=== PATIENT | male | born 1960 | race Caucasian/White ===

== ENCOUNTER 2018-03-23 13:57 | Outpatient (RCR) | payer MEDICARE, MEDICAID, SELFPAY ==
--- NOTE | 2018-03-23 14:00 | IE_ITS ---
Date: March 23, 2018 Referring: Torin Moser MD M.D. Diagnosis: L LE lymphedema P.T. Diagnosis: Bilateral LE venous insufficiency, peripheral neuropathy, L LE lymphedema with small ulcer, healed cellulitis SUBJECTIVE: History of Present Illness: Patient reports about 4-5 years ago he started have swelling in bilateral legs and feet. He states that the swelling comes and goes and he gets episodes of blisters on bilateral legs that pop and proceed to infection about 3x per year. He has been recently treated for cellulitis of the L LE, has completed antibiotic therapy. He states he has tried over the counter knee high closed toe compression garments, but has trouble getting them on due to difficulty reaching his feet. He does have a sock aide at home, but is unable to put on compression garments using the sock aide. He reports he has been on disability for several years due to back and hip pain and is pretty sedentary in his lifestyle. He mostly stays at home and moves from the kitchen to the living room. He sleeps in recliner chair due to difficulty breathing. He states he is not very active at his baseline. Patient is here for education regarding lymphedema management with goal to reduce LE swelling and episodes of cellulitis throughout the year. Patient states at this time his legs are pretty good shape and have calmed down in swelling significantly in the last few weeks. Pain Ratin/10 throughout his body, reports ongoing chronic pain that limits his functional mobility. Prior Level of Function: Prior to 5 years ago he had decreased swelling in the legs and was slightly more mobile . Current Level of Function: Only wears slip on shoes and slip on boots. Difficulty standing up in the shower to perform bathing and uses a shower chair. Unable to reach his feet to perform nail care, unable to reach his feet to perform skin care and cleaning between the toes. Unable to put on socks, even with sock aide, so he frequently goes without socks in the summer and winter time. 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 Previous Treatment: None for this diagnosis. Has been treated for cellulitis with antibiotics in the past. Reports he has been taking water pills. Social: Currently lives with a room mate who may be moving out. Does not have a spouse or partner to be able to assist him with LE care or dressing. He needs to be independent in the home setting. Occasionally uses assistive device of single point cane, or a 4-wheeled walker. Does use a shower chair and grab bars for bathing. As stated above, sleeps in a recliner chair, does not have the ability to lie flat in a bed, limited mobility and household. Comorbidities: Chronic obstructive pulmonary disease, diabetes mellitus type II , morbid obesity, acute kidney injury in the past, coronary artery disease, s/p two vascular stents, LED insert, reports myocardial infarction, umbilicus hernia repair and graft in 2010, hyperlipidemia, heavy tobacco addiction 1-2 ppd , lymphedema L LE, cellulitis bilateral LE, chronic small ulcers L LE. Falls in the last year: __X__ No Reported hospitalizations in the last year - __X__ Yes - Dates of admission/ reason: due to cellulitis Medications: Significant (see medical records from Dr. Moser for complete medication details) Quality of Life: ____ Excellent ____ Good __X__ Fair ____ Poor Standardized Measures: LEFS score: 94% Completed lymphedema quality of life study (see sheet for details) OBJECTIVE: Posture: Patient stands with wide stance, obese with forward lean due to abdomen Gait: Step through gait pattern with wide base of support without assistive device. Decreased stride and decreased romeo due to shortness of breath with exertion and deconditioning. Palpation/Observation: Bilateral LE skin changes, bilateral anterior shins are bright red, L lateral calf has a small scaled dry, healing wound .5x.5: Remaining toe nails on bilateral feet are very long and require a podiatry consult as patient is unable to reach his feet to cut his toenails. Bilateral skin around the ankles and toes is dry, scaly as patient has difficulty putting lotion on his feet, due to inability to reach his feet. Bilateral feet and dorsum of the feet tender to palpation. Edema: Not significant at this time. Patient reports edema occurs primarily from the knee to the foot. Circumferential measurements: RIGHT LEFT Mid foot 26cm 24cm 10cm 27cm *29cm 20cm 31cm *32cm 30cm 40cm 40cm 40cm 39cm 39.5cm 50cm 46cm 47cm ROM: Bilateral hip flexion to 110 degrees, bilateral knees WNL. Bilateral ankles WNL. Strength: Bilateral hip flexion 3/5, 4/5 bilateral quad, 4/5 hamstring, 5/5 dorsiflexion and plantar flexion. Neuro: Patient is intact to light touch in proprioception. Does have some decreased sensation he reports with bilateral LE with gait and with mobility. Most likely due to peripheral neuropathy secondary to diabetes mellitus. Motor control and kinesthetic awareness are intact. Treatment: Included initial evaluation, assessment of functional abilities. IE: [id number] Patient Education: Patient issued lymphedema education packet. Educated regarding the difference between venous insufficiency swelling due to cardiac issues and use of diuretic vs lymphedema swelling. Patient provided with diagram regarding lymphatic system and hand outs regarding the anatomy and physiology of venous vs lymphatic systems. Discussion with patient regarding treatment for lymphedema including complete decongestive therapy (CDT) consisting of 1: Skin care and hygiene; at this time the patient has relatively poor skin care , extension length of all toes except for the great toe has which as been removed. Difficulty cleaning between the toes and cleaning of the feet, inability to put lotion on feet daily due to obesity and inability to reach his feet. The patient is a high risk for cellulitis due to difficulty caring for his skin and hx of cellulitis infection with a non-healing ulcer on the left lateral calf. The patient is not sure what his plan is going to be regarding his skin care. Recommend podiatry consult for nail care at this time. 2: Manual lymphatic drainage: Patient will be unable to perform LE MLD due to obesity and COPD. He will be able to perform upper body MLD sequence to activate the general lymphatic system, but specific manual lymphatic drainage on LE's will be extremely difficult for him due to his obesity, deconditioning, and COPD. The patient is not a candidate for pneumatic pumps due to cardiac stents and cardiac history. MLD may not be an option for him at this time. 3: Compression: The patient is in need of new knee high closed toe 20-30mmhg compression garments. Will discuss with patient at next visit options for obtaining compression garments. Patient has difficulty donning the garments due to obesity and COPD. Compliance with compression use on a daily basis is going to be difficult for him due to not having assistance to don his garments daily. Garments are his best option at this time for mcc edema management. 4: Exercise and Elevation: Patient is generally sedentary, difficulty with exercise due to 9/10 chronic pain throughout the body and COPD along with cardiac disease. 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 Will issue LE strengthening for sitting and recliner in his recliner chair to try to improve mobility in LE'S. Elevation: due to inability to lay flat secondary to COPD, patient sleeps in his recliner chair and does not get true elevation of the LEs above the heart for drainage of the lymphedema; again this will be a challenge for him Direct treatment time: 60 mins Total treatment time: 60 mins ASSESSMENT: Patient is a 57-year-old male referred for PT services with the diagnosis of left lower extremity lymphedema. Patient presents with clinical signs and symptoms consistent with Bilateral LE venous insufficiency, peripheral neuropathy due to diabetes, L LE lymphedema with small ulcer, healed cellulitis in setting of morbid obesity and sedentary lifestyle. Pt presents with the following impairment level findings: pain in bilateral LE's with palpation, skin discoloration bilateral LE's consistent with venous changes, non healing ulcer on left LE, edema in left LE see circumferential measurements, decreased ability to perform self ADLS and functional mobility see above. Impairments are contributing to the following functional limitations: see above Patient is assessed as: ____ Low 74503 __X__ Moderate 14921 ____ High 75300 complexity, based on the following: History: See comorbidities and social history. Examination: Body parts bilateral LE's See above for functional limitations and impairments. Presentation: Stable Decision-Making: Moderate complexity % Disability based on LEFS 95% __x__ Patient requires skilled PT intervention to remediate the above functional limitations to return to: __X__ Improve Quality of Life and functional mobility G-Codes Patient's primary functional limitation is in the category of: Other Physical/Occupational Therapy primary functional limitation: current status [id number] Projected goal: __x__ Other Physical/Occupational Therapy primary functional limitation: projected status [id number] KX modifier to be utilized as justified by above documentation for necessity of continued Physical Therapy intervention to attend to functional deficits which have not been fully remediated as they approach their Medicare cap. GOALS STG: __2__ weeks. 1: Educate patient regarding skin care, the patient to obtain podiatry consult and plan for improving skin care for feet. 2: Instruct patient in upper body manual lymphatic drainage to improve lymphatic flow to the body. 3: Patient independent with LE exercise program in sitting and supine. LTG: __4__ weeks. 1: Patient elevating LE in recliner chair 30 mins a day. 2: Patient independent with donning knee high compression garments and wearing daily. 3: Patient independent with lymphedema management program as he is able due to his medical limitations. PLAN: Patient to be seen 1 x per week, for 4 weeks, adjusting frequency of visits per patient symptoms and response to treatment. Treatment to include: Manual therapy - [id number]: for manual lymphatic drainage and instruction in self MLD techniques Therapeutic exercise - [id number] LE strengthening and mobility Aquatic therapy is recommended for lymphatic mobilization and general conditioning. Self care training for lymphedema management program. Thank you for this referral. Please do not hesitate to contact me with any questions or concerns regarding this patient's plan of care. Kori Aburto PT, CLT *Dr. Moser, please sign this evaluation if you are in agreement with the above evaluation and plan of care. cc: Torin Moser MD
== END 2018-03-23 23:59 | disposition home or self-care (01) ==
LOC: PT 13:57
PROVIDERS: PCP Family Medicine; Referring Provider Family Medicine; Visit Provider Family Medicine
DX: I89.0 Lymphedema, not elsewhere classified (principal); I87.2 Venous insufficiency (chronic) (peripheral); E11.40 Type 2 diabetes mellitus with diabetic neuropathy, unspecified
CPT/HCPCS: 97162

== ENCOUNTER 2018-10-09 10:26 | Outpatient (CLI) | payer MEDICARE, SELFPAY ==
[2018-10-09 13:21] LABS: Uric Acid 8.8 mg/dL (3.5-7.2)
== END 2018-10-09 10:46 ==
PROVIDERS: PCP Family Medicine; Visit Provider Family Medicine
DX: M10.9 Gout, unspecified (principal)
CPT/HCPCS: 36415; 84550

== ENCOUNTER 2019-05-01 01:51 | Outpatient (CLI) | payer MEDICARE, MEDICAID, SELFPAY ==
--- NOTE | 2019-05-01 | PFT_ITS ---
PULMONARY FUNCTION TEST REPORT Patient - [facility]arg[facility] Page DATE OF SERVICE May 01, 2019 REQUESTING PROVIDER Jairon Crabtree M.D. INTERPRETATION OF STUDY Spirometry shows very severe obstructive airways disease with some, but not significant bronchodilator response. LUNG VOLUMES - Lung volumes show moderate restriction. DIFFUSION CAPACITY- Mildly reduced, which is normal when corrected to alveolar volume. AIRWAY RESISTANCE - Elevated. IMPRESSION Combination of very severe obstructive airways disease with some, but not significant bronchodilator response and moderate restrictive lung disease, therefore Clinical correlation is recommended. When this study was compared to previous one from 12/16/09, the patient has a total of 1020 cc decline in FVC. FEV1 has declined by 970 cc. Franca Warren M.D. VEDA/ T- 05/01/2019
[2019-05-01] MEDS: Inhaler, Assist Device 1 EACH MC (08:32)
[2019-05-01] MEDS: Albuterol HFA 18 GM 200 PUFF INH IH (08:32)
== END 2019-05-01 02:11 ==
PROVIDERS: PCP Family Medicine; Visit Provider Family Medicine
DX: J44.9 Chronic obstructive pulmonary disease, unspecified (principal); R06.09 Other forms of dyspnea; F17.200 Nicotine dependence, unspecified, uncomplicated
CPT/HCPCS: 94060; 94150; 94726; 94729

== ENCOUNTER 2020-02-12 12:01 | Emergency (ER) | payer OTHER, MEDICAID, SELFPAY ==
[2020-02-12 12:04] VITALS: BP 133/98; PULSE 69; RESP 22; TEMP 36; O2SAT 95
--- NOTE | 2020-02-12 12:30 | ED.GENADUL_ITS ---
Discharge Plan Disposition Patient Disposition: HOME Condition: Stable Discharge Details Chief Complaint: RashLesion Clinical Impression: Lymphedema of both lower extremities, Diabetic leg ulcer Primary Care Provider: Torin Moser ED Provider: Houston Hensley Home Meds and New Rx's Prescriptions: New cephalexin 500 mg tablet 500 mg PO TID 10 Days Qty: 30 RF: 0 prednisone 10 mg tablet 10 mg PO DAILY Qty: 65 RF: 0 Continued simvastatin [Zocor] 40 mg tablet 40 mg PO QPM Qty: 90 RF: 4 gabapentin 100 mg capsule 100 mg PO TID Qty: 270 RF: 4 flu vacc qs 2018- (6 mos up) 60 mcg (15 mcg x 4)/0.5 mL suspension 0.5 ml IM ONCE Qty: 1 RF: 0 oxycodone 10 mg tablet 10 mg PO Q6H PRN MDD 40 mg Qty: 120 RF: 0 hydroxyzine HCl 25 mg tablet 25 mg PO TID PRN (Reason: itching) Qty: 30 RF: 1 multivitamin 1 EACH tablet 1 ea PO DAILY RF: 0 Support Stockings 0 Qty: 4 RF: 0 nitroglycerin [Nitrostat] 0.4 MG tablet, sublingual 0.4 mg Sublingual PRN Qty: 25 RF: 4 (DME) Blood Glucose Test 1 EACH strip 1 ea Sub-Q BID Qty: 100 RF: 4 (DME) lancets [OneTouch Delica Lancets] 1 EACH misc 1 ea Sub-Q AC & HS Qty: 120 RF: 4 Basaglar KwikPen U-100 Insulin 100 unit/mL (3 mL) insulin pen 50 unit subcut HS Qty: 15 RF: 5 furosemide [Lasix] 20 mg tablet 20 mg PO daily prn Qty: 90 RF: 4 (DME) pen needle, diabetic [BD Ultra-Fine Nkechi Pen Needle] 32 gauge x 5/32 needle 1 ea Miscellaneous QID Qty: 100 RF: 4 metformin 500 mg tablet 500 mg PO BID Qty: 180 RF: 4 levalbuterol tartrate [Xopenex HFA] 45 mcg/actuation HFA aerosol inhaler 2 puff Inhalation Q6H PRN PRN (Reason: shortness of breath or wheezing) Qty: 3 RF: 4 metoprolol tartrate 100 mg tablet 100 mg PO BID Qty: 180 RF: 4 Flovent HFA 110 mcg/actuation HFA aerosol inhaler 2 puff Inhalation BID Qty: 3 RF: 3 Combivent Respimat 20-100 mcg/actuation mist 1 puff Inhalation QID Qty: 3 RF: 4 lisinopril 40 mg tablet 40 mg PO QAM Qty: 90 RF: 4 ipratropium-albuterol 0.5 mg-3 mg(2.5 mg base)/3 mL solution for nebulization 3 ml Inhalation Q6H PRN Qty: 30 RF: 4 pregabalin [Lyrica] 50 mg capsule 50 mg PO TID Qty: 90 RF: 2 aspirin 325 MG tablet 325 mg PO DAILY RF: 0 Discontinued prednisone 10 mg tablet See Rx Instructions .Route .COMPLEX Qty: 63 RF: 0 amoxicillin-pot clavulanate 500-125 mg tablet 1 tab PO TID Qty: 30 RF: 0 Discharge Instructions Additional Instructions: We are working to arrange in-home wound care visits. You have an appointment at the [facility] this Monday at 8:30 AM. Please take antibiotics and prednisone as prescribed. Return for fever, worsening discomfort, or any other acute concern. Medical Decision Making This is a 59-year-old male diabetic. He is referred from outpatient clinic for persistent right lower leg ulcerations despite recent burst and taper of steroids and a course of Augmentin. He states to me that he gets poison sanjuanita of the legs every year, and states that he typically has done well with a aggressive burst of steroids and antibiotics. He states he is now had weeks of right lower extremity weeping ulcerations that were refractive to a recent burst and taper of prednisone 60 mg and tapering off by 10 mg every 3 days. He also was treated with a course of Augmentin x10 days beginning January 20.. No antibiotics for approximately 2 weeks. He arrives to the ER afebrile with a blood pressure 133/98 pulse of 69. States to me does not wish to be admitted to the hospital. Screening blood work including CRP and blood cultures obtained. Wound culture obtained. Patient referred for x-ray which does not reveal underlying acute osteomyelitis. Labs note a white blood cell count of 8, chemistries with glucose 203, creatinine 1.2, CRP of 4.9. Patient seen in consultation by wound care nursing and placed in bilateral zinc Unna boots. I will order home health wound care checks at home and we will consider changing to Unna boot every 3 days. Patient states he has had good response to steroids in the past and I do feel this is reasonable as he is not had significant hyperglycemia to this point. He will require a longer burst and taper. Additionally, he is at risk for superinfection and in addition to screening cultures, he was given ceftriaxone I will place him on a course of Keflex to cover for staph and strep. We will refer for outpatient wound care. Home health wound care as discussed. Referral made through our care management office. Offered admission to the hospital which patient declined. Do feel he is stable for outpatient trial at this time as per his wishes. Wound care at the [facility] was arranged for this Monday morning. HPI General Mode of arrival: ambulatory . Date/Time Provider Initiated Documentation: 02/12/20 12:14 . Limitations to Documentation: no limitations . Information obtained by: patient . History of Present Illness 59 year old M presents to the emergency department with the chief complaint of Right lower leg ulceration and dermatitis, described as moderate, Quality is described as dull, and is localized to the right and lower extremity. Patient started experiencing this hour(s) and it has been constant. No relieving factors improve symptom(s), No exacerbating factors reported . Patient did receive the following treatments prior to arrival, other (Prednisone and antibiotics) Related Data Home Medications Medication Instructions Recorded Confirmed multivitamin 1 ea PO DAILY 12/14/12 02/12/20 aspirin 325 mg PO DAILY 10/01/14 02/12/20 nitroglycerin [Nitrostat] 0.4 mg SUBLINGUAL PRN #25 tab.sl 05/23/16 02/12/20 Blood Glucose Test #100 strip 02/24/17 02/12/20 lancets [OneTouch Delica Lancets] #120 ea 10/04/17 02/12/20 insulin glargine 100 unit/mL (3 50 unit SUBCUT HS #15 ml 07/04/19 02/12/20 mL) subcutaneous pen furosemide 20 mg tablet 20 mg PO daily prn #90 tab-cap 07/25/19 02/12/20 pen needle, diabetic 32 gauge x #100 ea 07/25/19 02/12/20 metformin 500 mg tablet 500 mg PO BID #180 tab-cap 08/05/19 02/12/20 levalbuterol tartrate 45 2 puff INHALATION Q6H PRN PRN #3 08/19/19 02/12/20 mcg/actuation aerosol inhaler inhaler metoprolol tartrate 100 mg tablet 100 mg PO BID #180 tab-cap 09/13/19 02/12/20 fluticasone propionate 110 2 puff INHALATION BID #3 inhaler 10/02/19 02/12/20 mcg/actuation HFA aerosol inhaler ipratropium 20 mcg-albuterol 100 1 puff INHALATION QID #3 inhaler 10/10/19 02/12/20 mcg/actuation mist for inhalation lisinopril 40 mg tablet 40 mg PO QAM #90 tab 10/17/19 02/12/20 gabapentin 100 mg capsule 100 mg PO TID #270 cap 10/25/19 02/12/20 simvastatin 40 mg tablet 40 mg PO QPM #90 tab 10/25/19 02/12/20 ipratropium 0.5 mg-albuterol 3 mg 3 ml INHALATION Q6H PRN #30 amp 12/26/19 02/12/20 (2.5 mg base)/3 mL nebulization soln oxycodone 10 mg tablet 10 mg PO Q6H PRN #120 tab MDD 40 mg 01/02/20 02/12/20 hydroxyzine HCl 25 mg tablet 25 mg PO TID PRN #30 tab 01/21/20 02/12/20 pregabalin 50 mg capsule 50 mg PO TID #90 tab-cap 01/31/20 02/12/20 cephalexin 500 mg PO TID 10 Days #30 tab 02/12/20 prednisone 10 mg PO DAILY #65 tab 02/12/20 Previous Rx's Medication Instructions Recorded lancets [OneTouch Delica Lancets] #120 ea 10/04/17 insulin glargine 100 unit/mL (3 50 unit SUBCUT HS #15 ml 07/04/19 mL) subcutaneous pen furosemide 20 mg tablet 20 mg PO daily prn #90 tab-cap 07/25/19 pen needle, diabetic 32 gauge x #100 ea 07/25/19 metformin 500 mg tablet 500 mg PO BID #180 tab-cap 08/05/19 levalbuterol tartrate 45 2 puff INHALATION Q6H PRN PRN #3 08/19/19 mcg/actuation aerosol inhaler inhaler metoprolol tartrate 100 mg tablet 100 mg PO BID #180 tab-cap 09/13/19 fluticasone propionate 110 2 puff INHALATION BID #3 inhaler 10/02/19 mcg/actuation HFA aerosol inhaler ipratropium 20 mcg-albuterol 100 1 puff INHALATION QID #3 inhaler 10/10/19 mcg/actuation mist for inhalation lisinopril 40 mg tablet 40 mg PO QAM #90 tab 10/17/19 gabapentin 100 mg capsule 100 mg PO TID #270 cap 10/25/19 simvastatin 40 mg tablet 40 mg PO QPM #90 tab 10/25/19 ipratropium 0.5 mg-albuterol 3 mg 3 ml INHALATION Q6H PRN #30 amp 12/26/19 (2.5 mg base)/3 mL nebulization soln oxycodone 10 mg tablet 10 mg PO Q6H PRN #120 tab MDD 40 mg 01/02/20 hydroxyzine HCl 25 mg tablet 25 mg PO TID PRN #30 tab 01/21/20 pregabalin 50 mg capsule 50 mg PO TID #90 tab-cap 01/31/20 cephalexin 500 mg PO TID 10 Days #30 tab 02/12/20 prednisone 10 mg PO DAILY #65 tab 02/12/20 Allergies Allergy/AdvReac Type Severity Reaction Status Date / Time tobramycin Allergy Intermediate HIVES Verified 02/12/20 12:13 erythromycin base Allergy Mild SWELLING/HI Verified 02/12/20 12:13 [Erythromycin Base] VES Poison sanjuanita Allergy Uncoded 02/12/20 12:13 General Stated Complaint: RashLesion SINDHU: 3 Review of Systems Narrative: Denies fever, chills. States he has been doing daily dressing changes. States he finished a burst of steroid 2 to 3 days ago, finished a course of antibiotics. 8 systems reviewed and otherwise negative [facility] Medical History Carotid artery stenosis (Chronic) (LEFT)MODERATE Cellulitis of left leg (Inactive) Chronic obstructive lung disease (Chronic 11/12/10) Chronic obstructive pulmonary disease with hypoxia (Acute) Coronary arteriosclerosis (Chronic) Essential hypertension (Chronic) Hyperlipidemia (Chronic) Lymphedema of left lower extremity (Chronic 02/27/18) Osteoarthritis cervical spine (Chronic 04/02/15) Rotator cuff syndrome (Chronic 04/08/10) Venous insufficiency (chronic) (peripheral) (Chronic 02/05/16) Surgical History (Updated 01/03/19 @ 11:00 by Torin Moser MD) Debridement, Soft Tissue (07/05/16) perineal abscess History of intravascular stent placement (Resolved) History of umbilical hernia repair (Resolved) PROCEDURES INSERT 2 VASCULAR STENTS, 2005 UMBIL EVITA REP-GRFT/PROS, 2009 LAD INSERT 2005 Family History Mother Diabetes Essential hypertension Heart disease Brother Diabetes Social History Smoking/Tobacco Use Status: Current every day Tobacco Type: cigarettes Alcohol Intake: current Drug use: Never Substance use type: does not use Exam Narrative Exam Narrative: GEN: awake, alert, oriented 3. Pleasant, well groomed, interactive. HEAD: Normocephalic, atraumatic EYES: PERRL, EOMI NECK: Full ROM, no NEHA, no menigismus CHEST/RESP: Nontender, clear to auscultation bilateral, no wheeze/rhonchi/rales CARDIOVASCULAR: Distant, RRR, no murmur, rub najma. 2+ Rad pulse bilateral ABDOMEN: Soft, nontender, no mass. +Bowel sounds EXT: Full ROM, bilateral lower extremity trace to 1+ pretibial edema, chronic venous stasis changes present bilaterally. The right lower extremity is erythematous, it blanches to the touch its ulcerated with underlying granulation tissue present. Neuro: Grossly normal neurologic exam, conversant, interactive. Psych: Speech fluent, thoughts congruent, affect normal Course Vital Signs Vital signs: Vital Signs Temperature 36 C L 02/12/20 12:04 Pulse 69 02/12/20 12:04 Respiratory Rate 22 02/12/20 12:04 Blood Pressure 133/98 H 02/12/20 12:04 Pulse Oximetry 95 02/12/20 12:04 Temperature 36 C L 02/12/20 12:04 Temperature Source Skin 02/12/20 12:04 Pulse 69 02/12/20 12:04 Respiratory Rate 22 02/12/20 12:04 Respiratory Effort Labored 02/12/20 12:13 Blood Pressure 133/98 H 02/12/20 12:04 Blood Pressure Position Sitting 02/12/20 12:04 Pulse Oximetry 95 02/12/20 12:04 Oxygen Delivery Method Room Air 02/12/20 12:04 Oxygen Flow Rate 0 02/12/20 12:04 Pain Level 10 02/12/20 12:04 Lab/Test Results Lab/Test Results: 02/12/20 12:29 Blood Blood Culture - Pending 02/12/20 12:29 Blood Blood Culture - Pending
--- NOTE | 2020-02-12 12:30 | DI.RAD_ITS ---
EXAM: XR TIB/FIB RT CLINICAL HISTORY: erythema, discomfort, r/o osteomyelitis. TECHNIQUE: 2D digital imaging was performed. COMPARISON: No exams were available for comparison FINDINGS: BONES: No acute fracture is present. No bony destructive lesion is seen. Visualized portion of knee a nd ankle joints are unremarkable. There is an enthesophyte at the Achilles insertion site. SOFT TISSUE: Normal. IMPRESSION: No radiographic evidence to suggest acute osteomyelitis. DATA REPOSITORY: RADIATION DOSE DELIVERED:
[2020-02-12 12:45] LABS: Abs Immature Grans 0.08 k/cumm (0.0-0.09); Absolute Basophil Count 0.02 k/cumm (0.0-0.2); Absolute Eosinophil Count 0.11 k/cumm (0.0-0.7); Absolute Lymphocyte Count 1.04 k/cumm (1.2-3.4); Absolute Neutrophil Count 7.34 k/cumm (1.2-6.7); Basophils % 0.2; Eosinophils % 1.2; HCT 46.6 % (40.0-50.0); HGB 14.8 g/dL (13.5-17.5); Immature Grans % 0.9 %; Lymphocytes % 11.7; Mean Corp. HGB Concentration 31.8 g/dL (32.0-36.0); Mean Corpuscular Hemoglobin 29.7 pg (27.0-33.0); Mean Corpuscular Volume 93.6 fL (80-95); Mean Platelet Volume 9.1 fL (8.0-11.0); Monocytes % 3.4; Neutrophils % 82.6; Platelet Count 237 x1000/uL (130-400); RBC 4.98 m/cumm (4.50-6.00); RBC Distribution Width 15.7 % (11.8-14.1); White Blood Cell Count 8.89 k/cumm (4.4-10.8)
[2020-02-12 12:58] LABS: ALT 52 U/L (16-63); AST 19 U/L (15-37); Albumin 3.1 g/dL (3.4-5.0); Alkaline Phosphatase 96 U/L (46-116); Anion Gap 7.8 mmol/L (3-11); BUN 21 mg/dL (7-18); Bilirubin, Total 0.6 mg/dL (0.2-1.0); C-Reactive Protein 4.95 mg/dL (0.0-0.3); CO2 32.2 mmol/L (21.0-32.0); Calcium 8.9 mg/dL (8.5-10.1); Chloride 102 mmol/L (98-107); Glucose 203 mg/dL (74-106); Potassium 3.9 mmol/L (3.5-5.1); Sodium 142 mmol/L (136-145); Total Protein 6.8 g/dL (6.4-8.2)
[2020-02-12] MEDS: oxyCODONE 10 MG TAB PO (13:37)
[2020-02-12] MEDS: methylPREDNISolone SUCC 125 MG VIAL IVP (13:53)
[2020-02-12] MEDS: cefTRIAXone 1 GM/50 ML BAG IVPB (13:53)
--- NOTE | 2020-02-12 14:49 | WOUNDCARE ---
Wound Care Report Pt is a59 year old male consulted for RLE ulcerations, ? venous in nature, ? r/t recent position sanjuanita. Chart reviewed, no labs available @ this time, contact made with MD Hensley. Medical Hx and labs pertinent to wound healing: Pt on steroids taper, diabetic. Wound Hx if applicable States this happens every year. Reports going [facility] in the past but did not actually receive Tx there. LLE has venous skin changes and +2 swelling. Scabbed areas in between toes on LLE. Pt is a smoker. Wound Assessment Findings Multiple ulcerations, Full thickness skin loss noted to RLE. Wounds are scattered from below knee to distal ankle and span circumference of leg. Wound beds- yellow slough covers 100% of wound beds. Weeping. Wound Edges Definition defined edges Surrounding tissue LE has venous changes, mo color on shins, tissue surrounding ulcerations bright red in areas. Exudate RLE is weepy, serous drainage, with some ulcerations draining pus. Odor strong Indicators of infection present? Erythema, edema, increased exudate, odor, warmth, weeping, discolorations, delayed healing, change in color, purulent drainage, intense burning pain at site all present. Patients Mobility status independent Circulatory status weak pedal pulses palpated, Capillary refill less than 3 seconds, ankle brachial index (MARILEE) not obtained, Pt too sensitive. Pain Descriptors: throbbing, burning, intense per Pt report. Given oxycodone during consult by ER nurse. Medications altering healing Corticosteroids Referrals Pt?s toenails are overgrown and he is a diabetic, recommend podiatry. learning and development specialist recommended. Patient/family/staff education- instructed Pt to remove Unna boots if pain becomes too intense, burning doesn?t subside, if he can?t feel his toes, or they become discolored. Recommendations: Zinc Unna boots applied in ER. Placed EUNICE wraps with only slight tension. Change Every 3 days and PRN. Thank you for the consult.
[2020-02-12 15:06] VITALS: BP 152/95; PULSE 97; RESP 14; TEMP 36.2; O2SAT 95
--- NOTE | 2020-02-12 15:57 | CMPROGNOTE_ITS ---
- If Service Date Differs Date of service: 02/12/20 Time of Service: 15:57 Care Management Progress Note Varghese presents in the ED today for lymphedema of both lower extremities and diabetic leg ulcer. At the request of ED provider, CM coordinates a referral to the [facility] at [facility] in [place], [place], and obtains an appointment for patient on Monday, February 14, 2020 at 8:30 am. Patient is made aware of this appointment and is provided contact information for the [facility] in case he needs to reschedule the appointment.
--- NOTE | 2020-02-13 14:32 | ED.FU.B_ITS ---
Date of service: 02/13/20 Time of Service: 14:33 1432: Culture result preliminary noted scant growth of gram-positive shoshana, suspect did of staph aureus MRSA. Patient was placed on cephalexin 500 mg 3 times daily x10 days in department, will call in a prescription for Bactrim DS twice daily x10 days to [facility]. Called patient and spoke with him and the wound care nurse to him regarding this change, patient verbalized understanding.
== END 2020-02-12 15:07 | disposition home or self-care (01) ==
PROVIDERS: Emergency Provider Emergency Medicine; PCP Family Medicine
DX: I89.0 Lymphedema, not elsewhere classified (principal); E11.65 Type 2 diabetes mellitus with hyperglycemia; E11.622 Type 2 diabetes mellitus with other skin ulcer; Z79.84 Long term (current) use of oral hypoglycemic drugs; L97.811 Non-pressure chronic ulcer of other part of right lower leg limited to breakdown of skin; I10 Essential (primary) hypertension; J44.9 Chronic obstructive pulmonary disease, unspecified; F17.210 Nicotine dependence, cigarettes, uncomplicated
CPT/HCPCS: 36415; 36416; 80053; 82962; 87040; 87077; 96365; 96375; 99284; 73590; 85025; 86140; 87070; 87186; 87205; J0696; J2930

== ENCOUNTER 2020-02-19 11:22 | Outpatient (REF) | payer OTHER, MEDICAID, SELFPAY ==
[2020-02-19 12:07] LABS: Cholesterol 180 mg/dL (<200); HDL Cholesterol 28 mg/dL (40-60); Triglyceride 410 mg/dL (<150)
[2020-02-19 12:26] LABS: LDL CHOLESTEROL 107 mg/dL (<100)
== END 2020-02-19 11:42 ==
LOC: LBN 11:22
PROVIDERS: PCP Family Medicine; Visit Provider Family Medicine
DX: E11.622 Type 2 diabetes mellitus with other skin ulcer (principal); E78.5 Hyperlipidemia, unspecified
CPT/HCPCS: 80061; 83721; 83036

== ENCOUNTER 2020-06-25 03:23 | Outpatient (CLI) | payer OTHER, MEDICAID, SELFPAY ==
[2020-06-25 08:00] LABS: Hemoglobin A1C 5.9 % (<5.7)
[2020-06-25 08:44] LABS: ALT 32 U/L (16-63); AST 15 U/L (15-37); Albumin 3.3 g/dL (3.4-5.0); Alkaline Phosphatase 90 U/L (46-116); BUN 14 mg/dL (7-18); Bilirubin, Total 0.3 mg/dL (0.2-1.0); CREATININE 1.18 mg/dL (0.70-1.30); Calcium 8.7 mg/dL (8.5-10.1); Calculated LDL 85 mg/dL (<100); Chloride 105 mmol/L (98-107); Cholesterol 149 mg/dL (<200); Glucose 104 mg/dL (74-106); HDL Cholesterol 25 mg/dL (40-60); Potassium 4.5 mmol/L (3.5-5.1); Sodium 141 mmol/L (136-145); Total Protein 6.9 g/dL (6.4-8.2); Triglyceride 195 mg/dL (<150)
== END 2020-06-25 03:43 ==
DX: E03.9 Hypothyroidism, unspecified (principal); I10 Essential (primary) hypertension; E11.9 Type 2 diabetes mellitus without complications; I87.2 Venous insufficiency (chronic) (peripheral)
CPT/HCPCS: 36415; 80053; 80061; 83036

== ENCOUNTER 2021-01-27 12:50 | Outpatient (CLI) | payer OTHER, MEDICAID, SELFPAY ==
--- NOTE | 2021-01-27 11:15 | DI.RAD_ITS ---
Exam(s) XR CHEST 2V PA LATERAL EXAM: XR CHEST 2V PA LATERAL CLINICAL HISTORY: Increased Dyspnea and CP J44.9 COPD R09.02 HYPOXEMIA R06.00 DYSPNEA TECHNIQUE: 2D digital imaging was performed. COMPARISON: No exams were available for comparison FINDINGS: MEDIASTINUM: Normal. HEART: Mild cardiomegaly. PULMONARY VASCULATURE: Normal. LUNGS: Clear. PLEURAL SPACE: No pleural effusion or pneumothorax. BONE:Within normal limits for the patient's age. OTHER FINDINGS:Normal. IMPRESSION: Cardiomegaly. DATA REPOSITORY: RADIATION DOSE DELIVERED:
--- OUTSIDE RECORDS SUMMARY | 2021-01-27 12:58 | XMS_ITS ---
:1960 Author Care Team Providers Name Role Phone RICHIE NAVARRETE Primary Care Provider [phone] RICHIE NAVARRETE Referring Provider [phone] RICHIE NAVARRETE MD Primary Care Provider [phone] Allergies Code Code System Name Reaction Severity Status Onset 4053 RxNorm Erythromycin Base Hives ? Active ? 114954 RxNorm Poison Tamica ? ? Active ? Extract 17697 RxNorm Tobramycin Hives ? Active ? Medications Name Status Start Date Stop Date ? ? amitriptyline 10 mg tablet Active ? Not a vailable Take 1 tablet every day by oral route. aspirin 325 mg tablet Active ? Not availa ble Take 1 tablet every day by oral route. BD Ultrafine Orig Pen Grover Active ? No t available Chantix Active ? Not available 1 mg tablet twice a day fluticasone propionate 110 mcg/actuation HFA aerosol inhaler Act eran ? Not available Inhale 1 puff every day by inhalation route. furosemide 20 mg tablet Active ? Not avai lable Take 1 tablet every day by oral route as needed. gabapentin 100 mg capsule Active ? Not av ailable Take 1 capsule 3 times a day by oral route. insulin glargine (U-100) 100 unit/mL (3 mL) subcutaneous pen Act eran ? Not available Inject 50 units by subcutaneous route at bedtime. ipratropium-albuterol Active ? Not availa ble 3 ml inhalation every 6 hours as needed ketorolac 10 mg tablet Active ? Not avail able Take 1 tablet every 6 hours by oral route as needed. levalbuterol HFA 45 mcg/actuation aerosol inhaler Active ? Not available Inhale 2 puffs every 6 hours by inhalation route as needed. lidocaine Active ? Not available Topical every 4 hours as needed lisinopril 40 mg tablet Active ? Not avai lable Take 1 tablet every day by oral route. metformin 500 mg tablet Active ? Not avai lable Take 1 tablet twice a day by oral route. metoprolol tartrate 100 mg tablet Active ? Not available Take 1 tablet twice a day by oral route. multivitamin Active ? Not available Take 1 tablet everyday Nicoderm CQ 21 mg/24 hr daily transdermal patch Active ? Not available Apply 1 patch every day by transdermal route. nitroglycerin 0.4 mg sublingual tablet Active ? Not available Place 1 tablet by sublingual route as needed. OneTouch Delica Lancets Active ? Not avai lable oxycodone 10 mg tablet Active ? Not avail able Take 1 tablet every 6 hours by oral route as needed. pregabalin 50 mg capsule Active ? Not pal ilable Take 1 capsule 3 times a day by oral route. simvastatin 40 mg tablet Active ? Not pal ilable Take 1 tablet every day by oral route. Test Strips Active ? Not available Problems Name Status Onset Date Source ? Type II Diabetes Mellitus Uncontrolled Active ? ? Hyperlipidemia Active ? ? Essential Hypertension Active ? ? Coronary Atherosclerosis Active ? ? Carotid Artery Stenosis Active ? ? Lymphedema of Lower Extremity Active ? ? Venous Insufficiency of Leg Active ? ? Chronic Obstructive Lung Disease Active ? ? Spondylosis Active ? ? Rotator Cuff Syndrome Active ? ? Procedures Date Name Performed by ? 07/05/2016 Debridement of Soft Tissue Information n ot available Notes: procedures Results Lab Results None recorded. Past Encounters None recorded. Social History Tobacco Smoking Status Current Every Day Smoker Notes: Vaccine List None recorded. Plan of Care Reminders Provider Appointments None ? ? recorded. Lab None ? ? recorded. Referral None ? ? recorded. Procedures None ? ? recorded. Surgeries None ? ? recorded. Imaging None ? ? recorded. Vitals 02/26/2019 10:25AM General Surgery F/U 20 min Height Weight BMI Blood Pressure 165.1 cm 129.27 kg 47.4 kg/m2 118/64 mm[Hg] 01/14/2019 10:05AM General Surgery F/U 20 min Weight Blood Pressure 127.01 kg 124/72 mm[Hg]
--- OUTSIDE RECORDS SUMMARY | 2021-01-27 12:58 | XMS_ITS ---
:1960 Author Organization [facility] Address [address] [id number] Care Team Providers Name Role Phone Yris Unavailable Unavailable PROBLEMS Type Condition ICD9-CM HPD97-VP Onset Condition SNOMED Cod e Code Code Dates Status Problem Chronic J44.9 Active 71115244 obstructive lung disease Problem Uncontrolled type E11.40 Active 15 93694304362 2 diabetes mellitus with diabetic neuropathy, with long-term current use of insulin Problem Carotid artery I65.29 Active 30189 002 stenosis Problem Osteoarthritis M47.812 Active 11510 0006 cervical spine Problem Stasis dermatitis I83.10 Active 35 039572 Problem Cellulitis of left L03.116 Active 1 [id number] leg Problem Essential I10 Active 50656363 hypertension Problem Venous I87.2 Active 87187454 insufficiency (chronic) (peripheral) Problem Lymphedema of left I89.0 Active 2 69876726 lower extremity Problem Rotator cuff M75.100 Active syndrome Problem Diabetes with E11.49 Active 003132 007 neurologic complications Problem Diabetes type 2, E11.65 Active 443 915589 uncontrolled Problem Leg ulcer L97.909 Active 01645297 Problem Hyperlipemia E78.5 Active 9156642 4 Problem COPD (chronic J44.9 Active obstructive pulmonary disease) ALLERGIES Substance Reaction Event Type Date Status Erythromycin Base hives/swelling Drug Allergy Feb, Active Poison Tamica Unknown Non Drug Allergy Feb, Active Tobramycin hives Drug Allergy Feb, Active ENCOUNTERS Encounter Location Date Diagnosis [facility] [address] [facility] Jun, [place] [address] [facility] [address] [facility] Jun, [place] [address] [facility] [address] 04 Jun, 2020 [place] [address] [facility] [address] 27 May, 2020 [place] [address] [facility] [address] 20 May, 2020 [place] [address] [facility] [address] 13 May, 2020 [place] [address] [facility] [address] 09 May, 2019 [place] [address] [facility] [address] 06 May, 2020 [place] [address] [facility] [address] 30 Apr, 2020 [place] [address] [facility] [address] 26 Apr, 2020 [place] [address] [facility] [address] [facility] 16 Apr, 2020 [place] [address] [facility] [address] 09 Apr, 2019 [place] [address] [facility] [address] [facility] 05 Apr, 2019 [place] [address] [facility] Apr, Stasis dermatiti [place] I83.10 [place] [address] Leg ulcer L 97.909 [facility] [address] [facility] 02 Apr, 2020 [place] [address] [facility] [address] 28 Mar, 2019 [place] [address] [facility] [address] 25 Mar, 2019 [place] [address] [facility] [address] 21 Mar, 2019 [place] [address] [facility] [address] 18 Mar, 2019 [place] [address] [facility] [address] [facility] 18 Mar, 2019 [place] [address] [facility] [address] [facility] 18 Mar, 2019 [place] [address] [facility] [address] [facility] 14 Mar, 2019 [place] [address] [facility] [address] 11 Mar, 2019 [place] [address] [facility] [address] 08 Mar, 2019 [place] [address] [facility] [address] 04 Mar, 2019 [place] [address] [facility] [address] 31 Feb, 2019 [place] [address] [facility] [address] 28 Feb, 2019 [place] [address] [facility] [address] 24 Feb, 2019 [place] [address] [facility] [address] 21 Feb, 2019 [place] [address] [facility] [address] 17 Feb, 2019 [place] [address] [facility] [address] [facility] Feb, Diabetes type 2, [place] [address] E11.65 ; Nuvia lolita with neurologic compl ications E11.49 ; Leg ulc er L97.909 ; Onychomycosis B3 5.1 and Toe pain, bilateral M79.674 [facility] [address] [facility] Feb, [place] [address] [facility] [address] [facility] Feb, [place] [address] [facility] [address] [facility] Feb, [place] [address] [facility] [address] [facility] Feb, [place] [address] [facility] [address] [facility] Jan, [place] [address] [facility] [address] [facility] Jan, [place] [address] [facility] [address] [facility] Jan, [place] [address] [facility] [address] [facility] May, [place] [address] IMMUNIZATIONS No Known Immunizations SOCIAL HISTORY Qualifiers Date Current Smoker REASON FOR REFERRAL FUNCTIONAL STATUS PLAN OF CARE VITAL SIGNS MEDICATIONS Medication Instructions Dosage Frequency Start End Duration Statu s Date Date Lisinopril 40 MG Orally Once a 1 tablet 24h 30 day(s ) Unknown day Simvastatin 40 Orally Once a 1 tablet in 24h 30 day( s) Unknown MG day the evening Pregabalin 50 MG Orally Once a 1 capsule 24h Unknown day oxyCODONE HCl 10 Orally every 6 1 tablet as 6h Unknown MG hrs needed Lidocaine 0.5 % as directed Unkn own Medrol 4 MG as directed Mar, MEDROL DOSEPAK 4 BY MOUTH DIRECTED Mar, 6 days Active mg DIRECTED 2019 Aspirin 325 MG Orally Once a 1 tablet 24h 30 day(s) Unknown day Insulin Glargine 50 units Unknow n 100 UNIT/ML Pen [place] Unknown OneTouch Delica Unknown Plus Lancets Furosemide 20 MG Orally Once a 1 tablet 24h 30 day(s ) Unknown day Ipratropium-Albu Inhalation 3 ml as 6h Unkn own terol 0.5-2.5 every 6 hrs needed (3) MG/3ML Nicotine 21 Transdermal 1 patch to 24h 30 day(s) Unk nown MG/24HR Once a day skin Multi Vitamin - Orally Once a 1 tablet 24h 30 day(s) Unknown day predniSONE 10 MG Orally Once a 6x2d 5x2d 24h Apr, 0 days Active day 4x2d 3x2d 2020 2x2d 1x2d Nitrostat 0.4 MG as directed Unk nown metFORMIN HCl Orally Once a 1 tablet 24h 30 day(s) U nknown 500 MG day with a meal Chantix as directed Unknown Continuing Month Ramon 1 MG Gabapentin 100 Orally Once a 1 capsule 24h 30 day(s) Unknown MG day Levalbuterol Inhalation 1 puff as 4h Unknow n Tartrate 45 every 4 hrs needed MCG/ACT Amoxicillin-Pot Orally every 8 1 tablet 8h 7 day(s) Unknown Clavulanate hrs 500-125 MG Metoprolol Orally Twice a 1 tablet 12h 30 day(s) Unk nown Tartrate 100 MG day with food Fluticasone as directed Unknown Propionate (Inhal) 110 MCG/ACT Ipratropium-Albu Inhalation 1 puff as 6h Un known terol 20-100 every 6 hrs needed MCG/ACT PROCEDURES No Known procedures RESULTS No Results REASON FOR VISIT [facility] Visit, nailcare, [facility]-Follow Up, [facility]-Follow Up, [facility]-Follow Up, [facility]-Follow Up, 3 month f/u, routine footcare, referral done, [facility] Visit, [facility]-Follow Up, [facility]-Follow Up, Wound [facility]- Follow Up, Wound [facility]-Follow Up, Wound [facility]-Follow Up, [facility]-NSG Visit, [facility]ound [facility]-Follow Up, [facility]-NS[facility] Visit, Steroid Medication, Wound [facility]-Follow Up, [facility]-NSG Visit, [facility]ound [facility]-Follow Up, [facility] Visit, New Medication, Rx, [facility]ound [facility]-Follow Up, [facility]ound [facility]-NSG Visit, [facility]ound [facility]-Follow Up, [facility]-NSG Visit, [facility]ound [facility]-Follow Up, [facility]ound [facility]-NSG Visit, WoundCTR-Follow Up, Wound [facility]- NSG Visit, Wound [facility]-Follow Up, Wound CTR-Follow Up, nail care, pt state that he is here for nail care today , [facility]-NSG Visit, [facility]ound [facility]-Follow Up, [facility]-NSG Visit, [facility]ound [facility]-Follow Up, [facility]ound [facility]-NSG Visit, Wound CTR-Follow Up, Wound CTR-NEW, Wound [facility]-NEW Insurance Providers [facility] Member Patient Patient Patient Patient Patient Subscriber Subscriber Subscriber Group Insurance Plan Plan Plan Plan ID Relationship Address Phone Name Date of ID Name Date of No Type Insurance Insurance Insurance Coverage to Subscriber Address Phone Name Dates UNITED [address] UNITED self JARRETT [id number] HEALTHCARE [id number] [place] MEDIC[place] [phone] SELF PAY self JARRETT [id number] [place] [address] INSURANCE MEDICARE [address] MEDICARE self JARRETT [id number] [facility] [id number] S-MEDICAID EDS [id number] S-[place]ICA[place] self [place]AR[place] [id number] [place] [address] [place] [facility] [facility] [id number] MEDICAL (GENERAL) HISTORY Type Description Date Medical History Chronic obstructive lung disease Medical History COPD (chronic obstructive pulmonary dise ase) Medical History Essential hypertension Medical History Lymphedema of left lower extremity Medical History Hyperlipemia Medical History Osteoarthritis cervical spine Medical History Rotator cuff syndrome Medical History Uncontrolled type 2 diabetes mellitus wi th diabetic neuropathy, with long-term current use of insulin Medical History Venous insufficiency (chronic) (peripher al) Medical History Carotid artery stenosis Medical History Cellulitis of left leg Medical History Stasis dermatitis Surgical History Perineal abscess debridement 2016 Surgical History Hx of intravascular stent placement (Res olved) Surgical History Hx of Umbilical hernia repair (Resolved)
== END 2021-01-27 13:10 ==
DX: I51.7 Cardiomegaly (principal); J44.9 Chronic obstructive pulmonary disease, unspecified
CPT/HCPCS: 71046

== ENCOUNTER 2021-01-28 03:03 | Outpatient (CLI) | payer OTHER, MEDICAID, SELFPAY ==
[2021-01-28 11:26] LABS: Abs Immature Grans 0.05 10^3/uL (0.0-0.06); Absolute Eosinophil Count 0.44 10^3/uL (0.0-0.7); Absolute Lymphocyte Count 1.71 10^3/uL (1.2-3.4); Absolute Monocyte Count 0.54 10^3/uL (0.1-0.8); Basophils % 1.1; Eosinophils % 4.9; HCT 55.5 % (40.0-50.0); HGB 17.7 g/dL (13.5-17.5); Immature Grans % 0.6; Lymphocytes % 19.1; MCH 30.4 pg (27.0-33.0); MCHC 31.9 % (32.0-36.0); MCV 95.4 fL (80-95); MPV 8.5 fL (8.0-11.0); Neutrophils % 68.3; Nucleated RBC 0 %; Platelet Count 222 10^3/uL (130-400); RBC 5.82 10^6/uL (4.36-5.78); RDW 14.9 % (11.8-14.1); RDW-SD 52.3 fL; WBC 8.94 10^3/uL (4.4-10.8)
[2021-01-28 12:20] LABS: ALT 28 U/L (16-63); AST 13 U/L (15-37); Albumin 3.3 g/dL (3.4-5.0); Alkaline Phosphatase 104 U/L (46-116); Anion Gap 8.9 mmol/L (3-11); BUN 17 mg/dL (7-18); Bilirubin, Total 0.7 mg/dL (0.2-1.0); CO2 30.1 mmol/L (21.0-32.0); CREATININE 1.1 mg/dL (0.70-1.30); Calcium 9.3 mg/dL (8.5-10.1); Chloride 103 mmol/L (98-107); Glucose 108 mg/dL (74-106); Potassium 4.6 mmol/L (3.5-5.1); Sodium 142 mmol/L (136-145)
== END 2021-01-28 03:04 | disposition home or self-care (01) ==
LOC: LBO 03:03
DX: I25.10 Atherosclerotic heart disease of native coronary artery without angina pectoris (principal); R06.00 Dyspnea, unspecified; R09.02 Hypoxemia; J44.9 Chronic obstructive pulmonary disease, unspecified
CPT/HCPCS: 36415; 80053; 85025

== ENCOUNTER 2021-01-28 15:11 | Outpatient (CLI) | payer MEDICARE, MEDICAID, SELFPAY ==
--- NOTE | 2021-01-28 15:45 | RT.EKG_ITS ---
APPROVED REPORT Exam: Resting ECG Reason for Exam: chest pain Patient Location: O HR:56 bpm ECG Measurements Heart Rate 56 AXIS VT 194 P -32 QRSd 89 QRS 39 QT [id number] T 8 QTc 0 Conclusion Ectopic atrial bradycardia...abnormal P axis, V-rate< [address]-T changes
== END 2021-01-28 15:12 | disposition home or self-care (01) ==
DX: R07.9 Chest pain, unspecified (principal)
CPT/HCPCS: 93010

== ENCOUNTER 2021-11-02 03:14 | Outpatient (CLI) | payer MEDICARE, MEDICAID, SELFPAY ==
[2021-11-02 14:13] LABS: Hemoglobin A1C 6.1 % (<5.7)
[2021-11-02 14:45] LABS: ALT 21 U/L (16-63); AST 15 U/L (15-37); Albumin 3.3 g/dL (3.4-5.0); Alkaline Phosphatase 90 U/L (46-116); Anion Gap 5.3 mmol/L (3-11); BUN 20 mg/dL (7-18); Bilirubin, Total 0.5 mg/dL (0.2-1.0); CO2 35.7 mmol/L (21.0-32.0); CREATININE 1.3 mg/dL (0.70-1.30); Calcium 8.9 mg/dL (8.5-10.1); Chloride 104 mmol/L (98-107); Estimated GFR 56.12 (mL/min/1.73m2); Glucose 86 mg/dL (74-106); Potassium 4.3 mmol/L (3.5-5.1); Sodium 145 mmol/L (136-145); Total Protein 6.9 g/dL (6.4-8.2)
== END 2021-11-02 03:15 | disposition home or self-care (01) ==
LOC: LBO 03:15
DX: E11.9 Type 2 diabetes mellitus without complications (principal); Z79.4 Long term (current) use of insulin; I25.10 Atherosclerotic heart disease of native coronary artery without angina pectoris; I87.2 Venous insufficiency (chronic) (peripheral); E66.01 Morbid (severe) obesity due to excess calories
CPT/HCPCS: 36415; 80053; 83036

== ENCOUNTER 2021-11-09 02:28 | Outpatient (CLI) | payer MEDICARE, MEDICAID, SELFPAY ==
[2021-11-09] MEDS: Albuterol HFA 18 GM 200 PUFF INH IH (11:03)
[2021-11-09] MEDS: Inhaler, Assist Device 1 EACH MC (11:04)
== END 2021-11-09 02:29 | disposition home or self-care (01) ==
LOC: RT 02:28
DX: J44.9 Chronic obstructive pulmonary disease, unspecified (principal); R06.09 Other forms of dyspnea; R05.8 Other specified cough; Z87.891 Personal history of nicotine dependence; E66.9 Obesity, unspecified; J98.4 Other disorders of lung
CPT/HCPCS: 94060; 94726; 94729

== ENCOUNTER → 2022-01-07 00:39 | Outpatient (CLI) | payer MEDICARE, MEDICAID, SELFPAY ==
--- NOTE | 2022-01-07 08:38 | DI.CT_ITS ---
Exam(s) CT CHEST WO EXAM: CT CHEST WO CLINICAL HISTORY: Increasing symptoms, ? ILD,emphysema,copd,j43.9,r09.02,j44.9 TECHNIQUE: CT examination of the chest was performed without contrast administration. COMPARISON: No exams were available for comparison FINDINGS: Please note that there was marked motion artifact from breathing on this examination which limits int erpretation. Images obtained through the upper abdomen show unremarkable appearance of visualized portions of th e liver and spleen. Visualized portions of pancreas, adrenals, and kidneys are unremarkable. Note is made of coronary artery calcification. There is mild prominence of a few mediastinal lymph nodes, the largest in the aortopulmonary window m easuring up to about 16 millimeters in diameter on transaxial imaging. No bulky adenopathy seen.. M ediastinal vascular structures appear intact by noncontrast criteria. Tracheobronchial tree appears intact. No pleural effusion or pleural-based mass. The lungs are grossly clear as visualized with no significant intrapulmonary consolidation or mass id entified. There is a probable 6 millimeter in diameter right lower lobe pulmonary nodule. Pulmonary interstitial markings cannot be adequately evaluated due to marked motion artifact period. IMPRESSION: No evidence of acute intrapulmonary process. Examination is significantly limited by breathing motio n artifact.. RADIATION DOSE DELIVERED: 926.85mGy.cm Total DLP CTDIvol 926.85mGy.cm Total DLP !Error CTDIvol RADIATION OPTIMIZATION: All CT scans at this facility use at least one of these dose optimization te chniques: automated exposure control; mA and/or kV adjustment per patient size (includes targeted exa ms where dose is matched to clinical indication); or iterative reconstruction.
== END ==
DX: J43.9 Emphysema, unspecified (principal); J84.9 Interstitial pulmonary disease, unspecified
CPT/HCPCS: 71250

== ENCOUNTER 2022-06-25 17:50 | Outpatient (REF) | payer MEDICARE, MEDICAID, SELFPAY ==
[2022-06-25 17:33] LABS: HCT 48.8 % (40.0-50.0); HGB 15.4 g/dL (13.5-17.5); MCH 29.8 pg (27.0-33.0); MCHC 31.6 % (32.0-36.0); MCV 95 fL (80-95); MPV 9.1 fL (8.0-11.0); Platelet Count 250 10^3/uL (130-400); RBC 5.16 10^6/uL (4.36-5.78); RDW 15.2 % (11.8-14.1); RDW-SD 53.8 fL; WBC 7.44 10^3/uL (4.4-10.8)
[2022-06-25 17:51] LABS: ALT 25 U/L (16-63); AST 13 U/L (15-37); Albumin 2.7 g/dL (3.4-5.0); Alkaline Phosphatase 89 U/L (46-116); Anion Gap 3.6 mmol/L (3-11); BUN 17 mg/dL (7-18); Bilirubin, Total 0.4 mg/dL (0.2-1.0); CO2 33.4 mmol/L (21.0-32.0); Calcium 8.8 mg/dL (8.5-10.1); Chloride 102 mmol/L (98-107); Estimated GFR 85.63 (mL/min/1.73m2); Glucose 143 mg/dL (74-106); Potassium 4.6 mmol/L (3.5-5.1); Sodium 139 mmol/L (136-145); Total Protein 7.1 g/dL (6.4-8.2)
[2022-06-25 17:53] LABS: Hemoglobin A1C 5.8 % (<5.7)
== END 2022-06-25 17:51 | disposition home or self-care (01) ==
LOC: LBN 17:50
PROVIDERS: PCP Nurse Practitioner Family; Visit Provider Nurse Practitioner Family
DX: E11.9 Type 2 diabetes mellitus without complications (principal); Z79.4 Long term (current) use of insulin; J44.9 Chronic obstructive pulmonary disease, unspecified; R09.02 Hypoxemia
CPT/HCPCS: 80053; 85027; 83036